=== PATIENT | male | born 1980 | race Caucasian/White ===

== ENCOUNTER 2017-12-10 13:54 | Inpatient (IN) | payer SELFPAY ==
[2017-12-10] MEDS ORDERED: LORazepam TAB(*) 1 MG PO ONE (14:36)
[2017-12-10 14:49] LABS: ABS Basophils 0.1 10^3/ul (0-0.2); ABS Eosinophils 0 10^3/ul (0-0.6); ABS Lymphocytes 1.3 10^3/ul (1.0-4.8); ABS Monocytes 0.5 10^3/ul (0-0.8); ABS Neutrophils 5.1 10^3/ul (1.5-7.7); ABS Nucleated RBC 0 10^3/ul; Eosinophil % 0.7 % (0-6); Hematocrit 46 % (42-52); Hemoglobin 16.2 g/dl (14.0-18.0); Mean Corpuscular HGB Conc 35 g/dl (31-36); Mean Corpuscular Hemoglobin 31 pg (27-31); Mean Corpuscular Volume 89 fL (80-94); Mean Platelet Volume 6.3 um3 (7.4-10.4); Nucleated Red Blood Cells % 0; Platelet Count 185 10^3/ul (150-450); Red Blood Count 5.17 10^6/ul (4.00-5.40); Red Cell Distribution Width 13 % (10.5-15)
[2017-12-10 14:55] LABS: Urine Appearance Clear; Urine Blood Negative (Negative); Urine Color Yellow; Urine Ketones Negative (Negative); Urine Protein Negative (Negative); Urine Specific Gravity 1.011 (1.010-1.030); Urine Urobilinogen Negative (Negative)
[2017-12-10 15:01] LABS: EGFR Non-African American 106.6 (>60)
--- NOTE | 2017-12-10 15:17 | ED ---
Psychiatric Complaint - HPI Summary HPI Summary: This patient is a 37 year old M presenting to [facility] with a chief complaint of chronic depression and anxiety. Pts last drink was Tuesday12/06/17, [place]. Endorses nausea, dry-heaving at hospital due to anxiety. Beer is his drink of choice. Pt [place]. Pt is in the area for rehab. Pt from [facility]. Im sick I need help. Pt was staying at the [facility] back home. Pt endorses trying to stay sober. Pt endorses anxiety causes panic, tries to elope. PMHx anxiety, depression, panic disorder, Xanax Rx, came off Tuesday, took somewhat regularly. PMHx stent in femoral artery in abd due to surgery. Smokes cigarettes. - History Of Current Complaint Chief Complaint: EDMentalHealth Time Seen by Provider: 12/10/17 14:08 Hx Obtained From: Patient Onset/Duration: Still Present Timing: Constant Severity Initially: Moderate Severity Currently: Moderate Character: Depressed, Anxious Aggravating Factor(s): Alcohol Use Alleviating Factor(s): Nothing Associated Signs And Symptoms: Positive: Social Withdrawal Related History: Positive For: Prior Psychiatric Issues, Admissions Related To Substance Abuse - Allergies/Home Medications Allergies/Adverse Reactions: Allergies Allergy/AdvReac Type Severity Reaction Status Date / Time No Known Allergies Allergy n/a Verified 12/10/17 14:02 PMH/Surg Hx/FS Hx/Imm Hx Cardiovascular History: Reports: Other Cardiovascular Problems/Disorders - varicose veins Sensory History: Denies: Hx Legally Blind, Hx Deafness Opthamlomology History: Denies: Hx Legally Blind EENT History: Denies: Hx Deafness Psychiatric History: Reports: Hx Anxiety, Hx Depression, Hx Panic Disorder, Hx Substance Abuse - alcohol - Surgical History Surgery Procedure, Year, and Place: abdominal femoral stent Infectious Disease History: Yes Infectious Disease History: Denies: Traveled Outside the [place] in Last 30 Days - Family History Known Family History: Negative: Blood Disorder - Social History Occupation: Unemployed Lives: Alone - homeless Alcohol Use: Daily Hx Substance Use: Yes Hx Tobacco Use: Yes Smoking Status (MU): Current Every Day Smoker Type: Cigarettes Review of Systems Negative: Fever Positive: Vomiting - dry-heaving, Nausea Positive: Anxious, Depressed All Other Systems Reviewed And Are Negative: Yes Physical Exam Triage Information Reviewed: Yes Vital Signs On Initial Exam: Initial Vitals Temp Pulse Resp BP Pulse Ox 98.5 F 102 26 125/93 95 12/10/17 13:57 12/10/17 13:57 12/10/17 13:57 12/10/17 13:57 12/10/17 13:57 Vital Signs Reviewed: Yes Diagnostics - Vital Signs Vital Signs Temp Pulse Resp BP Pulse Ox 12/10/17 13:57 98.5 F 102 26 125/93 95 - Laboratory Lab Results: Lab Results 12/10/17 12/10/17 12/10/17 Range/Units 14:23 14:23 14:26 WBC 7.0 (3.5-10.8) 10^3/ul RBC 5.17 (4.00-5.40) 10^6/ul Hgb 16.2 (14.0-18.0) g/dl Hct 46 (42-52) % MCV 89 (80-94) fL MCH 31 (27-31) pg MCHC 35 (31-36) g/dl RDW 13 (10.5-15) % Plt Count 185 (150-450) 10^3/ul MPV 6.3 L (7.4-10.4) um3 Neut % (Auto) 73.5 (38-83) % Lymph % (Auto) 18.0 L (25-47) % [place] % (Auto) 6.9 (0-7) % Eos % (Auto) 0.7 (0-6) % Baso % (Auto) 0.9 (0-2) % Absolute Neuts (auto) 5.1 (1.5-7.7) 10^3/ul Absolute Lymphs (auto) 1.3 (1.0-4.8) 10^3/ul Absolute Monos (auto) 0.5 (0-0.8) 10^3/ul Absolute Eos (auto) 0 (0-0.6) 10^3/ul Absolute Basos (auto) 0.1 (0-0.2) 10^3/ul Absolute Nucleated RBC 0 10^3/ul Nucleated RBC % 0 Sodium 139 (135-145) mmol/L Potassium 3.7 (3.5-5.0) mmol/L Chloride 105 (101-111) mmol/L Carbon Dioxide 26 (22-32) mmol/L Anion Gap 8 (2-11) mmol/L BUN 11 (6-24) mg/dL Creatinine 0.81 (0.67-1.17) mg/dL Est GFR ( Amer) 129.0 (>60) Est GFR (Non-Af Amer) 106.6 (>60) BUN/Creatinine Ratio 13.6 (8-20) Glucose 139 H (70-100) mg/dL Calcium 9.4 (8.6-10.3) mg/dL Total Bilirubin 0.40 (0.2-1.0) mg/dL AST 12 L (13-39) U/L ALT 15 (7-52) U/L Alkaline Phosphatase 27 L (34-104) U/L Total Protein 7.1 (6.4-8.9) g/dL Albumin 4.4 (3.2-5.2) g/dL Globulin 2.7 (2-4) g/dL Albumin/Globulin Ratio 1.6 (1-3) TSH Pending Urine Color Yellow Urine Appearance Clear Urine pH 6.0 (5-9) Ur Specific [place] 1.011 (1.010-1.030) Urine Protein Negative (Negative) Urine Ketones Negative (Negative) Urine Blood Negative (Negative) Urine Nitrate Negative (Negative) Urine Bilirubin Negative (Negative) Urine Urobilinogen Negative (Negative) Ur Leukocyte Esterase Negative (Negative) Urine Glucose Negative (Negative) Salicylates Pending Acetaminophen Pending Serum Alcohol Pending Result Diagrams: 12/10/17 14:23 12/10/17 14:23 Lab Statement: Any lab studies that have been ordered have been reviewed, and results considered in the medical decision making process. - EKG 1443 Cardiac Rate: NL - 92 EKG Rhythm: Sinus Rhythm ST Segment: Normal EKG Interpretation: nl axis Course/Dx - Course Course Of Treatment: Patient with chronic alcoholism, depression and anxiety with exacerbation since being off his benzodiazepines since Tuesday. He is showing no evidence for withdrawal here to include no significant tremor, agitation or hypertension. There is no alcohol in his system. A medical evaluation was performed the patient is cleared for psychiatric evaluation. Crisis evaluators would like to hold him over and further evaluate. He was signed out to oncoming ER physician. - Differential Dx/Clinical Impression Provider Diagnosis: Alcoholism, Anxiety disorder Discharge - Sign-Out/Discharge Documenting (check all that apply): Sign-Out Patient Signing out patient TO: Richard Álvarez - psych hold - Discharge Plan Condition: Stable Referrals: No Primary Care Phys,NOPCP [Primary Care Provider] - - Billing Disposition and Condition Condition: STABLE
[2017-12-10] MEDS ORDERED: risperiDONE TAB* 2 MG PO ONE (22:43)
[2017-12-10] MEDS ORDERED: Mirtazapine TAB* 15 MG PO ONE (22:43)
[2017-12-11] MEDS: Venlafaxine EXT RELEASE CAP* 75 MG PO SCH (08:59)
[2017-12-11] MEDS ORDERED: ALPRAZolam TAB* 0.5 MG PO SCH (09:00)
--- NOTE | 2017-12-11 09:06 | PN ---
ED Flex Patient Progress Note Date of Service: 12/10/17 Subjective: This is a 37 year-old M who is pending admission to [facility] Mental [facility] Unit / transfer to another psychiatric facility / discharge to home / or being observed secondary to anxiety and alcoholism. Pt. examined in room F4 around 0820. He is sleeping. Staff reports no concerns over night. Objective: Vitals: Most recent vital signs documented below. General NAD Laboratory: Current laboratory results documented below. Assessment: Pending placement. Plan: Pending psychiatric or medical consultation to observe / transfer / admit / discharge will follow up daily . Vital Signs Temp Pulse Resp BP Pulse Ox 98.9 F 81 20 133/83 99 12/10/17 16:00 12/10/17 16:00 12/10/17 16:00 12/10/17 16:00 12/10/17 16:00 Lab Results - Entire Visit 12/10/17 12/10/17 12/10/17 14:26 14:26 14:23 WBC RBC Hgb Hct MCV MCH MCHC RDW Plt Count MPV Neut % (Auto) Lymph % (Auto) [place] % (Auto) Eos % (Auto) Baso % (Auto) Absolute Neuts (auto) Absolute Lymphs (auto) Absolute Monos (auto) Absolute Eos (auto) Absolute Basos (auto) Absolute Nucleated RBC Nucleated RBC % Sodium 139 Potassium 3.7 Chloride 105 Carbon Dioxide 26 Anion Gap 8 BUN 11 Creatinine 0.81 Est GFR ( Amer) 129.0 Est GFR (Non-Af Amer) 106.6 BUN/Creatinine Ratio 13.6 Glucose 139 H Calcium 9.4 Total Bilirubin 0.40 AST 12 L ALT 15 Alkaline Phosphatase 27 L Total Protein 7.1 Albumin 4.4 Globulin 2.7 Albumin/Globulin Ratio 1.6 TSH 0.90 Urine Color Yellow Urine Appearance Clear Urine pH 6.0 Ur Specific [place] 1.011 Urine Protein Negative Urine Ketones Negative Urine Blood Negative Urine Nitrate Negative Urine Bilirubin Negative Urine Urobilinogen Negative Ur Leukocyte Esterase Negative Urine Glucose Negative Salicylates < 2.50 Urine Opiates Screen None detected Acetaminophen < 15 Ur Barbiturates Screen None detected Ur Phencyclidine Scrn None detected Ur Amphetamines Screen None detected U Benzodiazepines Scrn None detected Urine Cocaine Screen None detected U Cannabinoids Screen None detected Serum Alcohol < 10 12/10/17 14:23 WBC 7.0 RBC 5.17 Hgb 16.2 Hct 46 MCV 89 MCH 31 MCHC 35 RDW 13 Plt Count 185 MPV 6.3 L Neut % (Auto) 73.5 Lymph % (Auto) 18.0 L [place] % (Auto) 6.9 Eos % (Auto) 0.7 Baso % (Auto) 0.9 Absolute Neuts (auto) 5.1 Absolute Lymphs (auto) 1.3 Absolute Monos (auto) 0.5 Absolute Eos (auto) 0 Absolute Basos (auto) 0.1 Absolute Nucleated RBC 0 Nucleated RBC % 0 Sodium Potassium Chloride Carbon Dioxide Anion Gap BUN Creatinine Est GFR ( Amer) Est GFR (Non-Af Amer) BUN/Creatinine Ratio Glucose Calcium Total Bilirubin AST ALT Alkaline Phosphatase Total Protein Albumin Globulin Albumin/Globulin Ratio TSH Urine Color Urine Appearance Urine pH Ur Specific [place] Urine Protein Urine Ketones Urine Blood Urine Nitrate Urine Bilirubin Urine Urobilinogen Ur Leukocyte Esterase Urine Glucose Salicylates Urine Opiates Screen Acetaminophen Ur Barbiturates Screen Ur Phencyclidine Scrn Ur Amphetamines Screen U Benzodiazepines Scrn Urine Cocaine Screen U Cannabinoids Screen Serum Alcohol
[2017-12-11] MEDS ORDERED: hydrOXYzine HCL TAB* 50 MG PO ONE (13:13)
[2017-12-11] MEDS ORDERED: hydrOXYzine HCL TAB* 50 MG ONE (13:16)
--- NOTE | 2017-12-11 14:07 | PN ---
ED Flex Patient Progress Note Date of Service: 12/11/17 Subjective: This is a 37 year-old M who is pending admission to [facility] Unit / transfer to another psychiatric facility secondary to worsening depressive symptoms, including suicidal ideation and inability to contract for safety if not admitted. He endorses having history of bipolar disorder, polysubstance abuse, and two serious suicide attempts (09/14 and 2013). He was driven by relatives to [place] on Tuesday12/07/17. He signed himself-out the next day and hitchhiked to [place]. He maintains that he will kill himself if discharged Today, he offers complaints of depressed mood, feeling hopeless, not having any reason to stay alive. He declines to discuss any specific plan. He also complains of extreme anxiety. Objective: Found lying in bed, alert, oriented x 3, poor eye contact, terse sleep, irritable affect, depressed mood. He maintains SI and does not contract for safety. He denies HI or A/VH. Assessment: Patient reports being depressed and suicidal. Relative, when contacted, expressed concerns about discharge him. Plan: Pending psychiatric transfer / admit /will follow up daily until then. Vital Signs Temp Pulse Resp BP Pulse Ox 98.6 F 100 17 118/79 100 12/11/17 09:09 12/11/17 09:09 12/11/17 09:09 12/11/17 09:09 12/11/17 09:09 Lab Results - Entire Visit 12/10/17 12/10/17 12/10/17 14:26 14:26 14:23 WBC RBC Hgb Hct MCV MCH MCHC RDW Plt Count MPV Neut % (Auto) Lymph % (Auto) [place] % (Auto) Eos % (Auto) Baso % (Auto) Absolute Neuts (auto) Absolute Lymphs (auto) Absolute Monos (auto) Absolute Eos (auto) Absolute Basos (auto) Absolute Nucleated RBC Nucleated RBC % Sodium 139 Potassium 3.7 Chloride 105 Carbon Dioxide 26 Anion Gap 8 BUN 11 Creatinine 0.81 Est GFR ( Amer) 129.0 Est GFR (Non-Af Amer) 106.6 BUN/Creatinine Ratio 13.6 Glucose 139 H Calcium 9.4 Total Bilirubin 0.40 AST 12 L ALT 15 Alkaline Phosphatase 27 L Total Protein 7.1 Albumin 4.4 Globulin 2.7 Albumin/Globulin Ratio 1.6 TSH 0.90 Urine Color Yellow Urine Appearance Clear Urine pH 6.0 Ur Specific [place] 1.011 Urine Protein Negative Urine Ketones Negative Urine Blood Negative Urine Nitrate Negative Urine Bilirubin Negative Urine Urobilinogen Negative Ur Leukocyte Esterase Negative Urine Glucose Negative Salicylates < 2.50 Urine Opiates Screen None detected Acetaminophen < 15 Ur Barbiturates Screen None detected Ur Phencyclidine Scrn None detected Ur Amphetamines Screen None detected U Benzodiazepines Scrn None detected Urine Cocaine Screen None detected U Cannabinoids Screen None detected Serum Alcohol < 10 12/10/17 14:23 WBC 7.0 RBC 5.17 Hgb 16.2 Hct 46 MCV 89 MCH 31 MCHC 35 RDW 13 Plt Count 185 MPV 6.3 L Neut % (Auto) 73.5 Lymph % (Auto) 18.0 L [place] % (Auto) 6.9 Eos % (Auto) 0.7 Baso % (Auto) 0.9 Absolute Neuts (auto) 5.1 Absolute Lymphs (auto) 1.3 Absolute Monos (auto) 0.5 Absolute Eos (auto) 0 Absolute Basos (auto) 0.1 Absolute Nucleated RBC 0 Nucleated RBC % 0 Sodium Potassium Chloride Carbon Dioxide Anion Gap BUN Creatinine Est GFR ( Amer) Est GFR (Non-Af Amer) BUN/Creatinine Ratio Glucose Calcium Total Bilirubin AST ALT Alkaline Phosphatase Total Protein Albumin Globulin Albumin/Globulin Ratio TSH Urine Color Urine Appearance Urine pH Ur Specific [place] Urine Protein Urine Ketones Urine Blood Urine Nitrate Urine Bilirubin Urine Urobilinogen Ur Leukocyte Esterase Urine Glucose Salicylates Urine Opiates Screen Acetaminophen Ur Barbiturates Screen Ur Phencyclidine Scrn Ur Amphetamines Screen U Benzodiazepines Scrn Urine Cocaine Screen U Cannabinoids Screen Serum Alcohol
[2017-12-11] MEDS: Nicotine GUM* 2 MG PO PRN (18:06)
--- NOTE | 2017-12-11 18:26 | ED ---
Progress - Progress Note Progress Note: Pt received from Dr. Álvarez awaiting mental health evaluation and disposition. After mental health evaluation by Dr. Mccain, the pt will be admitted. Pt will be signed out to Dr. Álvarez and the he will be admitted. There are currently no beds available and it is likely he will be admitted tomorrow. - Consult/PCP Time Called: 16:00 Course/Dx - Diagnoses Provider Diagnoses: Alcoholism, Anxiety disorder Discharge - Sign-Out/Discharge Documenting (check all that apply): Sign-Out Patient, Receiving Sign-Out Signing out patient TO: Richard Álvarez Receiving patient FROM: Richard Álvarez - Discharge Plan Condition: Stable Referrals: No Primary Care Phys,NOPCP [Primary Care Provider] - - Billing Disposition and Condition Condition: STABLE
[2017-12-11] MEDS: risperiDONE TAB* 1 MG PO SCH (21:24)
[2017-12-11] MEDS: Mirtazapine TAB* 15 MG PO PRN (21:25)
--- NOTE | 2017-12-12 07:08 | ED ---
Progress - Progress Note Progress Note: This is scribe Ruth Jackson documenting for attending Eduardo Cantu M.D. Pt will be admitted [facility] for suicidal ideation, depression, and alcoholism. Course/Dx - Course Course Of Treatment: Pt will be admitted to [facility] for suicidal ideation, depression, alcoholism. He is admitted voluntarily. - Diagnoses Provider Diagnoses: Suicidal ideation, Depression, Alcoholism Discharge - Sign-Out/Discharge Documenting (check all that apply): Patient Departure - Admit, Receiving Sign- Out Receiving patient FROM: Richard Álvarez - Discharge Plan Condition: Stable Disposition: ADMITTED TO [facility] Referrals: No Primary Care Phys,NOPCP [Primary Care Provider] -
--- NOTE | 2017-12-12 07:48 | PN ---
ED Flex Patient Progress Note Date of Service: 12/12/17 Subjective: This is a 37 year-old M who is pending admission to [facility] Mental [facility] Unit / transfer to another psychiatric facility secondary to depression and ETOH. per note had breakfast. Pt is currently a sleep. Objective: Vitals: Most recent vital signs documented below. General NAD, Alert and oriented x3. currently a sleep Lungs: unlabored breathing Laboratory: Current laboratory results documented below. Assessment: Depression ETOH Plan: Pending psychiatric to transfer or admit will follow up daily until bed available condition:Stable disposition: admit/transfer Vital Signs Temp Pulse Resp BP Pulse Ox 98.9 F 64 16 99/53 95 12/11/17 15:22 12/11/17 15:22 12/11/17 15:22 12/11/17 15:22 12/11/17 15:22 Lab Results - Entire Visit 12/10/17 12/10/17 12/10/17 14:26 14:26 14:23 WBC RBC Hgb Hct MCV MCH MCHC RDW Plt Count MPV Neut % (Auto) Lymph % (Auto) [place] % (Auto) Eos % (Auto) Baso % (Auto) Absolute Neuts (auto) Absolute Lymphs (auto) Absolute Monos (auto) Absolute Eos (auto) Absolute Basos (auto) Absolute Nucleated RBC Nucleated RBC % Sodium 139 Potassium 3.7 Chloride 105 Carbon Dioxide 26 Anion Gap 8 BUN 11 Creatinine 0.81 Est GFR ( Amer) 129.0 Est GFR (Non-Af Amer) 106.6 BUN/Creatinine Ratio 13.6 Glucose 139 H Calcium 9.4 Total Bilirubin 0.40 AST 12 L ALT 15 Alkaline Phosphatase 27 L Total Protein 7.1 Albumin 4.4 Globulin 2.7 Albumin/Globulin Ratio 1.6 TSH 0.90 Urine Color Yellow Urine Appearance Clear Urine pH 6.0 Ur Specific [place] 1.011 Urine Protein Negative Urine Ketones Negative Urine Blood Negative Urine Nitrate Negative Urine Bilirubin Negative Urine Urobilinogen Negative Ur Leukocyte Esterase Negative Urine Glucose Negative Salicylates < 2.50 Urine Opiates Screen None detected Acetaminophen < 15 Ur Barbiturates Screen None detected Ur Phencyclidine Scrn None detected Ur Amphetamines Screen None detected U Benzodiazepines Scrn None detected Urine Cocaine Screen None detected U Cannabinoids Screen None detected Serum Alcohol < 10 12/10/17 14:23 WBC 7.0 RBC 5.17 Hgb 16.2 Hct 46 MCV 89 MCH 31 MCHC 35 RDW 13 Plt Count 185 MPV 6.3 L Neut % (Auto) 73.5 Lymph % (Auto) 18.0 L [place] % (Auto) 6.9 Eos % (Auto) 0.7 Baso % (Auto) 0.9 Absolute Neuts (auto) 5.1 Absolute Lymphs (auto) 1.3 Absolute Monos (auto) 0.5 Absolute Eos (auto) 0 Absolute Basos (auto) 0.1 Absolute Nucleated RBC 0 Nucleated RBC % 0 Sodium Potassium Chloride Carbon Dioxide Anion Gap BUN Creatinine Est GFR ( Amer) Est GFR (Non-Af Amer) BUN/Creatinine Ratio Glucose Calcium Total Bilirubin AST ALT Alkaline Phosphatase Total Protein Albumin Globulin Albumin/Globulin Ratio TSH Urine Color Urine Appearance Urine pH Ur Specific [place] Urine Protein Urine Ketones Urine Blood Urine Nitrate Urine Bilirubin Urine Urobilinogen Ur Leukocyte Esterase Urine Glucose Salicylates Urine Opiates Screen Acetaminophen Ur Barbiturates Screen Ur Phencyclidine Scrn Ur Amphetamines Screen U Benzodiazepines Scrn Urine Cocaine Screen U Cannabinoids Screen Serum Alcohol
[2017-12-12] MEDS: risperiDONE TAB* 1 MG PO SCH ×2 (09:03→20:53)
[2017-12-12] MEDS: Venlafaxine EXT RELEASE CAP* 75 MG PO SCH (09:04)
--- NOTE | 2017-12-12 11:53 | PN ---
ED Flex Patient Progress Note Date of Service: 12/12/17 Subjective: This is a 37 year-old M who is pending admission to [facility] Unit / transfer to another psychiatric facility secondary to feeling depressed and suicidal. He reports feeling slightly better today but continues to not contact for safety if discharged. Objective: Alert, oriented x 3, lying in bed in the dark, (+) psychomotor retardation, endorses SI, denies specific plan but does not contract for safety. He denies HI or A/VH. Assessment: Remains depressed, suicidal and in need of inpatient psychiatric treatment for safety, evaluation and treatment. Plan: Pending psychiatric admit in our [facility] today. Vital Signs Temp Pulse Resp BP Pulse Ox 98.9 F 64 16 99/53 95 12/11/17 15:22 12/11/17 15:22 12/11/17 15:22 12/11/17 15:22 12/11/17 15:22 Lab Results - Entire Visit 12/10/17 12/10/17 12/10/17 14:26 14:26 14:23 WBC RBC Hgb Hct MCV MCH MCHC RDW Plt Count MPV Neut % (Auto) Lymph % (Auto) [place] % (Auto) Eos % (Auto) Baso % (Auto) Absolute Neuts (auto) Absolute Lymphs (auto) Absolute Monos (auto) Absolute Eos (auto) Absolute Basos (auto) Absolute Nucleated RBC Nucleated RBC % Sodium 139 Potassium 3.7 Chloride 105 Carbon Dioxide 26 Anion Gap 8 BUN 11 Creatinine 0.81 Est GFR ( Amer) 129.0 Est GFR (Non-Af Amer) 106.6 BUN/Creatinine Ratio 13.6 Glucose 139 H Calcium 9.4 Total Bilirubin 0.40 AST 12 L ALT 15 Alkaline Phosphatase 27 L Total Protein 7.1 Albumin 4.4 Globulin 2.7 Albumin/Globulin Ratio 1.6 TSH 0.90 Urine Color Yellow Urine Appearance Clear Urine pH 6.0 Ur Specific [place] 1.011 Urine Protein Negative Urine Ketones Negative Urine Blood Negative Urine Nitrate Negative Urine Bilirubin Negative Urine Urobilinogen Negative Ur Leukocyte Esterase Negative Urine Glucose Negative Salicylates < 2.50 Urine Opiates Screen None detected Acetaminophen < 15 Ur Barbiturates Screen None detected Ur Phencyclidine Scrn None detected Ur Amphetamines Screen None detected U Benzodiazepines Scrn None detected Urine Cocaine Screen None detected U Cannabinoids Screen None detected Serum Alcohol < 10 12/10/17 14:23 WBC 7.0 RBC 5.17 Hgb 16.2 Hct 46 MCV 89 MCH 31 MCHC 35 RDW 13 Plt Count 185 MPV 6.3 L Neut % (Auto) 73.5 Lymph % (Auto) 18.0 L [place] % (Auto) 6.9 Eos % (Auto) 0.7 Baso % (Auto) 0.9 Absolute Neuts (auto) 5.1 Absolute Lymphs (auto) 1.3 Absolute Monos (auto) 0.5 Absolute Eos (auto) 0 Absolute Basos (auto) 0.1 Absolute Nucleated RBC 0 Nucleated RBC % 0 Sodium Potassium Chloride Carbon Dioxide Anion Gap BUN Creatinine Est GFR ( Amer) Est GFR (Non-Af Amer) BUN/Creatinine Ratio Glucose Calcium Total Bilirubin AST ALT Alkaline Phosphatase Total Protein Albumin Globulin Albumin/Globulin Ratio TSH Urine Color Urine Appearance Urine pH Ur Specific [place] Urine Protein Urine Ketones Urine Blood Urine Nitrate Urine Bilirubin Urine Urobilinogen Ur Leukocyte Esterase Urine Glucose Salicylates Urine Opiates Screen Acetaminophen Ur Barbiturates Screen Ur Phencyclidine Scrn Ur Amphetamines Screen U Benzodiazepines Scrn Urine Cocaine Screen U Cannabinoids Screen Serum Alcohol
[2017-12-12] MEDS ORDERED: Al Hydrox/Mg Hydrox/Simet LIQ* 30 ML UDC PO PRN (14:14)
[2017-12-12] MEDS ORDERED: Acetaminophen TAB* 325 MG PO PRN (14:14)
[2017-12-12] MEDS ORDERED: Mouth Piece, Nicotine* 1 EACH CARTRIDGE INH ONE (15:00)
[2017-12-12] MEDS: Nicotine Inhaler* 10 MG AMP INH PRN ×2 (17:51→20:53)
[2017-12-12] MEDS: Mirtazapine TAB* 15 MG PO PRN (20:53)
[2017-12-12] MEDS: Nicotine GUM* 2 MG PO PRN (20:53)
[2017-12-12] MEDS: Nicotine Patch Removal NOTE PATCH OFF SCH (20:53)
[2017-12-13] MEDS: Nicotine Inhaler* 10 MG AMP INH PRN ×3 (10:42→20:44)
[2017-12-13] MEDS: Vitamin THERAPEUTIC TAB PO SCH (10:43)
[2017-12-13] MEDS: risperiDONE TAB* 1 MG PO SCH ×2 (10:43→20:14)
[2017-12-13] MEDS: Venlafaxine EXT RELEASE CAP* 75 MG PO SCH (10:43)
[2017-12-13] MEDS: Nicotine GUM* 2 MG PO PRN (10:43)
[2017-12-13] MEDS: Nicotine PATCH 21 MG/24 HR* PATCH TRANSDERM SCH (10:44)
--- NOTE | 2017-12-13 14:43 | PN ---
[facility]: Group Therapy Note - Service Type Service Type: 15512 Group Psychotherapy - Cognitive Behavioral Group Therapy ( CBT):Patient was attentive and participatory in CBT programming this morning, and remained in good behavioral control. Patient expressed positive insights regarding relevant treatment interventions and goals.
--- NOTE | 2017-12-13 16:57 | HP ---
H&P (Free Text) History and Physical: JUSTIFICATION FOR ADMISSION: Patient presented to emergency room with suicidal ideation and plan, worsening depression and ambivalent about alcohol treatment. He requires inpatient psychiatric admission in order to provide treatment and stabilization as he is a danger to himself. CHIEF COMPLAINT: "I was not feeling right that is why I came to the hospital HISTORY OF THE PRESENT ILLNESS: Patient is a 37 y/o male, single, was living in a homeless chcf, currently unemployed, with history of Bipolar Depression and Suicidal attempts. Patient was admitted to inpatient unit for worsening of depression and recurrence of suicidal thoughts following psychosocial stressors and as per patient he was clean for 2 and half years until it felt apart at the beginning of this year following break up with his girlfriend. As per patient, he has been compliant with his medications from outpatient provider in [place]. But patient and family were concerned about his alcoholism and patient went to start alcohol Rehab at [place] but was not ready for it and left that place. Patient has been losing interest in his life. Patient has been feeling passively suicidal, impulsive with his behavior but no suicidal intent or attempt. Patient reportedly has anxiety and depression somewhat responding to Effexor. Patient reports no manic symptoms at this time but has mentioned history of them regardless of substance /alcohol use. Patient reports no psychotic symptoms of hallucinations or delusions and requested to revisit his need to be on any antipsychotics. Patient denied any suicidal or homicidal ideation on the unit. Patient continued to exhibit behavior that was in control and will approach staff if suicidal thoughts recur. PAST PSYCHIATRIC HISTORY: Patient has history of multiple inpatient psychiatric hospitalization. Patient has history of outpatient psychiatric treatment for Bipolar Depression and alcohol use disorder. Patients have been tried on multiple medications including lithium, Zyprexa, Risperidone but was unable to comment on the response. Patient has history of multiple inpatient rehab and outpatient drug treatment and was reported sober for 2 and half years until relapsed in the beginning of the year following breakup. Patient has history of suicidal thoughts and attempts twice reported following inability to deal with psychosocial stressor and overdosed on medications which was impulsive and of moderate lethality and rescue probability. Patient has no history of homicidal threats, intent or attempt. Patient has history of aggressive and agitated behavior when decompensates but no reported history of violence. No access to firearm reported. SUBSTANCE ABUSE HISTORY: Patient uses alcohol and recently signed out from a rehab. Urine toxicology was negative. Last use of alcohol was 12/06/17. Patient has been in inpatient and outpatient treatment for drugs. PAST MEDICAL HISTORY: No active medical problems ALLERGIES: [facility] FAMILY PSYCHIATRIC HISTORY: Patient has family history of mental illness including depression and anxiety. Patient has history of substance abuse in family. No reported suicide in the family. FAMILY/PSYCHOSOCIAL HISTORY: Patient currently is homeless was living at a alcohol recovery housing but had to leave that at the beginning of this year because of his relapse. Patient is not . Patient has 4 siblings, was raised by mother, parents got when he was a child. Patient is currently close to his elder brother and is planning to move back to him once he is better. Patient support system includes his family and friends. REVIEW OF SYSTEMS: Patients review of symptoms was negative for any physical complaint. But patient has been agitated and unstable in his mood, refusing his vitals to be taken. Patients ED physical exam was reviewed which is grossly normal with no active medical problem. MENTAL STATUS EXAMINATION: Appearance: appear stated, age, fair hygiene, fairly kempt Behavior: cooperative Gait: normal Abnormal motor activity: none Speech: low tone and volume, normal rate and rhythm Mood: depressed Affect: dysphoric Thought process: goal directed Thought Content: Suicidal/Homicidal ideation: passive Delusions: none Obsessions: none Phobia: none Perceptual disturbance: none Attention: fair Orientation: intact Concentration: limited Memory: fair Insight: fair Judgment: fair Impulse control: fair IMPRESSION: Patient with history of Bipolar Depression, Substance Abuse ( methamphetamine), Alcohol with suicidal attempts. Patient currently admitted due to worsening of depression and suicidal ideation. Patient has also struggled with ongoing psychosocial stressor and ambivalence about alcohol treatment . Patient is a danger to self and others if discharged hence will be stabilized on inpatient unit with medication adjustments and therapy. DIAGNOSES: Bipolar I Disorder, MRE Depression, Alcohol Use Disorder, Methamphetamine Use Disorder in remission PLAN: Admit to [facility] on Q 15 min observation. Patient is full code. Patient is on involuntary admission status Integrate patient into the milieu individual and group psychotherapy MMPI and psychological consult with Dr. Luu. Social work consults for therapy and discharge planning Will hold family meeting with parents to increase Data base. Patient gave informed consent to start the following medications: Patient Risperidone was reduced to 1 mg BID with intent to monitor any relapse in manic or psychotic symptoms. Patient reports some improvement with Effexor and remeron for his anxiety and depression and wants to continue with that. Will start Hydroxyzine as needed for breakthrough anxiety. Will continue to monitor and f/u for improvement and side effects. Melanie Lowe MD Attending Psychiatrist
[2017-12-13] MEDS: Mirtazapine TAB* 15 MG PO PRN (20:14)
[2017-12-13] MEDS: Nicotine Patch Removal NOTE PATCH OFF SCH (20:17)
[2017-12-14] MEDS: Nicotine PATCH 21 MG/24 HR* PATCH TRANSDERM SCH (09:34)
[2017-12-14] MEDS: Venlafaxine EXT RELEASE CAP* 75 MG PO SCH (09:37)
[2017-12-14] MEDS: risperiDONE TAB* 1 MG PO SCH ×2 (09:38→20:05)
[2017-12-14] MEDS: Vitamin THERAPEUTIC TAB PO SCH (09:38)
[2017-12-14] MEDS: Nicotine Inhaler* 10 MG AMP INH PRN ×4 (10:22→20:05)
--- NOTE | 2017-12-14 12:48 | PN ---
Subjective - Subjective Date of Service: 12/14/17 Service Type: 33203 Hosp care 15 min low complexity Subjective: Patient was seen by self, discussed with treatment team, chart was reviewed. Patient has been compliant with his medications, no reported side effects. Patient reports improvement in his symptoms of depression and anxiety. Patient sleeping has been better. Patient eating has been good. Patient has been cooperative with staff. Patient behavior has been in control with no behavior displayed that is dangerous to self and others. Patient mood was less anxious and less dysphoric. Patient was offered inpatient rehab upon further stability but wants to follow up outpatient treatment for mental health and alcohol when discharged. Patient reports being committed about not relapsing on alcohol and stating that he has done that in the past. Patient has been reporting no suicidal or homicidal ideation. No psychotic symptoms of delusions or hallucinations. Patient reports that he is participating in therapy and wants to learn more about relationships. Patient reports that he is making short term goals for himself upon discharge and finds his family to be supportive. Objective - Appearance Appearance: Healthy Appearing Dysmorphic Features: No Hygiene: Normal Grooming: Fairly Well Kept - Behavior Psychomotor Activities: Normal Exhibits Abnormal Movement: No - Attitude and Relatedness Attitude and Relatedness: Cooperative Eye Contact: Fair - Speech Quality: Unpressured Latencies: Normal Quantity: Appropriate - Mood Patient's Decription of Mood: "Okay" - Affect Observed Affect: Constricted Affect Consistent with: Dysphoria - Thought Process Patient's Thought Process: Coherent Thought Content: No Passive Wish, No Suicidal Planning, No Homicidal Ideation, No Paranoid Ideation - Sensorium Experiencing Hallucinations: No, Sensorium is Clear Type of Hallucinations: Visual: No, Auditory: No, Command: No - Level of Consciousness Level of Consciousness: Alert Orientation: Yes Intact, Yes Orientated to Time, Yes Orientated to Place, Yes Orientated to Person - Impulse Control Impulse Control: Intact - Insight and Judgement Insight and Judgement: Fair - Group Participation Particating in Group Activities: Yes - Medication Management Medication Management Adherence: Yes Assessment - Assessment Merits Inpatient Hospitalization: For Stabilization Inpatient DSM-V Dx: F31.4 Clinical Impression: Patient with history of bipolar disorder, currently admitted for worsening depression and suicidal ideation with alcohol use disorder. Patient has also been struggling with relationship and stressed out about recent breakup. Patient was ambivalent about his alcohol treatment and recently left inpatient alcohol rehab. Patient is a danger to self, discharged hence medications are being adjusted and symptoms will be stabilized on inpatient. Plan - Plan Treatment Plan: Name: KYLER MAZARIEGOS Birthdate: 1980 [id number] - Patient continues to be hospitalized due to recent suicidal thoughts, mood instability, anxiety and impulsivity. - Patient's medications were continued after informed consent from patient. - Patient will be monitored for improvement and side effects. Risk and benefits were discussed. - Patient was encouraged to continue his participation in the milieu, group and individual therapy. Medications: Current Medications Acetaminophen (Tylenol Tab*) 650 mg PO Q4H PRN PRN Reason: for pain; or Temp >101 F Al Hydrox/Mg Hydrox/Simethicone (Maalox Plus*) 30 ml PO Q4H PRN PRN Reason: INDIGESTION Mirtazapine (Remeron Tab*) 15 mg PO BEDTIME PRN PRN Reason: SLEEP Last Admin: 12/13/17 20:14 Dose: 15 mg Multivitamins (Theragran Tab*) 1 tab PO DAILY [facility] Last Admin: 12/14/17 09:38 Dose: 1 tab Nicotine (Nicotine Inhaler*) 10 mg INH Q2H PRN PRN Reason: CRAVING Last Admin: 12/14/17 10:22 Dose: 10 mg Nicotine (Nicotine Patch 21 Mg/24 Hr*) 1 patch TRANSDERM DAILY@0800 [facility] Last Admin: 12/14/17 09:34 Dose: Not Given Nicotine Polacrilex (Nicotine Gum*) 2 mg PO Q2H PRN PRN Reason: CRAVING Last Admin: 12/13/17 10:43 Dose: 2 mg Pharmacy Profile Note (Nicotine Patch Removal Note*) 1 note PATCH OFF 2100 [facility] Last Admin: 12/13/17 20:17 Dose: Not Given Risperidone (Risperdal*) 1 mg PO BID [facility] Last Admin: 12/14/17 09:38 Dose: 1 mg Venlafaxine HCl (Effexor Xr Cap*) 150 mg PO DAILY [facility] Last Admin: 12/14/17 09:37 Dose: 150 mg - Discharge Plan Discharge Plan: Outpatient Follow Up - both mental health and alcohol treatment
[2017-12-14] MEDS: Mirtazapine TAB* 15 MG PO PRN (20:05)
[2017-12-15] MEDS: Nicotine Patch Removal NOTE PATCH OFF SCH ×2 (02:42→19:49)
[2017-12-15] MEDS: risperiDONE TAB* 1 MG PO SCH ×2 (09:54→20:31)
[2017-12-15] MEDS: Nicotine Inhaler* 10 MG AMP INH PRN ×3 (09:54→15:35)
[2017-12-15] MEDS: Venlafaxine EXT RELEASE CAP* 75 MG PO SCH (09:54)
[2017-12-15] MEDS: Nicotine PATCH 21 MG/24 HR* PATCH TRANSDERM SCH (09:55)
[2017-12-15] MEDS: Vitamin THERAPEUTIC TAB PO SCH (09:55)
--- NOTE | 2017-12-15 11:30 | PN ---
MHU: Group Therapy Note - Service Type Service Type: 24233 Group Psychotherapy - Cognitive Behavioral Group Therapy ( CBT):Patient was attentive and participatory in CBT programming this morning, and remained in good behavioral control. Patient expressed positive insights regarding relevant treatment interventions and goals.
--- NOTE | 2017-12-15 13:14 | PN ---
Subjective - Subjective Date of Service: 12/15/17 Service Type: 31720 [facility] care 15 min low complexity Subjective: Patient was seen by self, discussed with treatment team, chart was reviewed. Patient has been compliant with his medications, no reported side effects. Patient reports improvement in his symptoms of depression and anxiety and reports no suicidal ideation. Patient sleeping has been better. Patient eating has been good. Patient has been cooperative with staff. Patient behavior has been in control with no behavior displayed that is dangerous to self and others. Patient mood was less anxious and less dysphoric, wanting naltrexone to reduce craving of alcohol. Patient wants to follow up outpatient treatment for mental health and alcohol when discharged in [place]. Patient reports being committed about not relapsing on alcohol and stating that he has done that in the past. Patient has been reporting no homicidal ideation. No psychotic symptoms of delusions or hallucinations. Patient reports that he is participating in therapy and learning to cope with distress. Patient reports that he is making short term goals for himself upon discharge and finds his family to be supportive. Objective - Appearance Appearance: Healthy Appearing Dysmorphic Features: No Hygiene: Normal Grooming: Fairly Well Kept - Behavior Psychomotor Activities: Normal Exhibits Abnormal Movement: No - Attitude and Relatedness Attitude and Relatedness: Cooperative Eye Contact: Good - Speech Quality: Unpressured Latencies: Normal Quantity: Appropriate - Mood Patient's Decription of Mood: "Okay" - Affect Observed Affect: Constricted Affect Consistent with: Dysphoria - less - Thought Process Patient's Thought Process: Coherent Thought Content: No Passive Wish, No Suicidal Planning, No Homicidal Ideation, No Paranoid Ideation - Sensorium Experiencing Hallucinations: No, Sensorium is Clear Type of Hallucinations: Visual: No, Auditory: No, Command: No - Level of Consciousness Level of Consciousness: Alert Orientation: Yes Intact, Yes Orientated to Time, Yes Orientated to Place, Yes Orientated to Person - Impulse Control Impulse Control: Intact - Insight and Judgement Insight and Judgement: Fair - Group Participation Particating in Group Activities: Yes - Medication Management Medication Management Adherence: Yes Assessment - Assessment Inpatient DSM-V Dx: F31.4 Clinical Impression: Patient with history of bipolar disorder, currently admitted for worsening depression and suicidal ideation with alcohol use disorder. Patient has also been struggling with relationship and stressed out about recent breakup. Patient was ambivalent about his alcohol treatment and recently left inpatient alcohol rehab. Patient is a danger to self, discharged hence medications are being adjusted and symptoms will be stabilized on inpatient. Plan - Plan Treatment Plan: Name: KYLER MAZARIEGOS Birthdate: 1980 [id number] - Patient continues to be hospitalized due to recent suicidal thoughts, mood instability, anxiety and impulsivity. - Patient's medications were continued after informed consent from patient. Patient is tolerating reduction in Risperidone to 1 mg BID with out any relapse in symptoms. Patient was started on Naltrexone after informed consent to help with alcohol craving. - Patient will be monitored for improvement and side effects. Risk and benefits were discussed. - Patient was encouraged to continue his participation in the milieu, group and individual therapy. Medications: Current Medications Acetaminophen (Tylenol Tab*) 650 mg PO Q4H PRN PRN Reason: for pain; or Temp >101 F Al Hydrox/Mg Hydrox/Simethicone (Maalox Plus*) 30 ml PO Q4H PRN PRN Reason: INDIGESTION Mirtazapine (Remeron Tab*) 15 mg PO BEDTIME PRN PRN Reason: SLEEP Last Admin: 12/14/17 20:05 Dose: 15 mg Multivitamins (Theragran Tab*) 1 tab PO DAILY [facility] Last Admin: 12/15/17 09:55 Dose: 1 tab Naltrexone HCl (Naltrexone Tab*) 50 mg PO DAILY [facility]; Protocol Nicotine (Nicotine Inhaler*) 10 mg INH Q2H PRN PRN Reason: CRAVING Last Admin: 12/15/17 12:34 Dose: 10 mg Nicotine (Nicotine Patch 21 Mg/24 Hr*) 1 patch TRANSDERM DAILY@0800 [facility] Last Admin: 12/15/17 09:55 Dose: Not Given Nicotine Polacrilex (Nicotine Gum*) 2 mg PO Q2H PRN PRN Reason: CRAVING Last Admin: 12/13/17 10:43 Dose: 2 mg Pharmacy Profile Note (Nicotine Patch Removal Note*) 1 note PATCH OFF 2100 [facility] Last Admin: 12/15/17 02:42 Dose: Not Given Risperidone (Risperdal*) 1 mg PO BID [facility] Last Admin: 12/15/17 09:54 Dose: 1 mg Venlafaxine HCl (Effexor Xr Cap*) 150 mg PO DAILY [facility] Last Admin: 12/15/17 09:54 Dose: 150 mg
[2017-12-15] MEDS: Naltrexone TAB* 50 MG TAB PO SCH (14:34)
[2017-12-15] MEDS: Nicotine GUM* 2 MG PO PRN ×2 (15:35→19:27)
--- NOTE | 2017-12-15 16:14 | PN ---
MHU: Group Therapy Note - Service Type Service Type: 73059 Group Psychotherapy - Group Participation Patient Participating in Group: Yes Level of Group Participation: Spontaneously Participate Relatedness to Group: Well Related - Appearance Appearance: Well Developed/Nourished Hygiene: Normal Grooming: Well Kept - Behavior Psychomotor Activities: Normal Exhibits Abnormal Movement: No - Attitude and Relatedness Attitude and Relatedness: Irritable Eye Contact: Good - Speech Quality: Unpressured Latencies: Normal Quantity: Appropriate - Mood Patient's Decription of Mood: "Fine" - Affect Observed Affect: Tense Affect Consistent with: Euthymia - Thought Process Patient's Thought Process: Coherent Thought Content: No Passive Wish, No Suicidal Planning, No Homicidal Ideation, No Paranoid Ideation - Sensorium Experiencing Hallucinations: No, Sensorium is Clear Type of Hallucinations: Visual: No, Auditory: No, Command: No - Level of Consciousness Level of Consciousness: Alert Orientation: Yes Intact, Yes Orientated to Time, Yes Orientated to Place, Yes Orientated to Person - Impulse Control Impulse Control: Tenuous - Insight and Judgement Insight and Judgement: Fair - Additional Group Comments Group Comments: David was irritable during group, finding that others who were intrusive were annoying to him. Still, he participated appropriately and was not particularly rude.
[2017-12-15] MEDS: Mirtazapine TAB* 15 MG PO PRN (20:32)
[2017-12-16 08:08] VITALS: BP 117/73
[2017-12-16] MEDS: Vitamin THERAPEUTIC TAB PO SCH (08:20)
[2017-12-16] MEDS: risperiDONE TAB* 1 MG PO SCH (08:20)
[2017-12-16] MEDS: Venlafaxine EXT RELEASE CAP* 75 MG PO SCH (08:20)
[2017-12-16] MEDS: Nicotine Inhaler* 10 MG AMP INH PRN (08:20)
[2017-12-16] MEDS: Naltrexone TAB* 50 MG TAB PO SCH (08:20)
[2017-12-16] MEDS: Nicotine PATCH 21 MG/24 HR* PATCH TRANSDERM SCH (08:47)
--- NOTE | 2017-12-16 12:34 | DS ---
Subjective - Subjective Discharge Date: 12/16/17 Subjective: JUSTIFICATION FOR ADMISSION: Patient presented to emergency room with suicidal ideation and plan, worsening depression and ambivalent about alcohol treatment. He requires inpatient psychiatric admission in order to provide treatment and stabilization as he is a danger to himself. CHIEF COMPLAINT: "I was not feeling right that is why I came to the hospital HISTORY OF THE PRESENT ILLNESS: Patient is a 37 y/o male, single, was living in a homeless [facility], currently unemployed, with history of Bipolar Depression and Suicidal attempts. Patient was admitted to inpatient unit for worsening of depression and recurrence of suicidal thoughts following psychosocial stressors and as per patient he was clean for 2 and half years until it felt apart at the beginning of this year following break up with his girlfriend. As per patient, he has been compliant with his medications from outpatient provider in [place]. But patient and family were concerned about his alcoholism and patient went to start alcohol Rehab at [place] but was not ready for it and left that place. Patient has been losing interest in his life. Patient has been feeling passively suicidal, impulsive with his behavior but no suicidal intent or attempt. Patient reportedly has anxiety and depression somewhat responding to Effexor. Patient reports no manic symptoms at this time but has mentioned history of them regardless of substance /alcohol use. Patient reports no psychotic symptoms of hallucinations or delusions and requested to revisit his need to be on any antipsychotics. Patient denied any suicidal or homicidal ideation on the unit. Patient continued to exhibit behavior that was in control and will approach staff if suicidal thoughts recur. PAST PSYCHIATRIC HISTORY: Patient has history of multiple inpatient psychiatric hospitalization. Patient has history of outpatient psychiatric treatment for Bipolar Depression and alcohol use disorder. Patients have been tried on multiple medications including lithium, Zyprexa, Risperidone but was unable to comment on the response. Patient has history of multiple inpatient rehab and outpatient drug treatment and was reported sober for 2 and half years until relapsed in the beginning of the year following breakup. Patient has history of suicidal thoughts and attempts twice reported following inability to deal with psychosocial stressor and overdosed on medications which was impulsive and of moderate lethality and rescue probability. Patient has no history of homicidal threats, intent or attempt. Patient has history of aggressive and agitated behavior when decompensates but no reported history of violence. No access to firearm reported. SUBSTANCE ABUSE HISTORY: Patient uses alcohol and recently signed out from a rehab. Urine toxicology was negative. Last use of alcohol was 12/06/17. Patient has been in inpatient and outpatient treatment for drugs. PAST MEDICAL HISTORY: No active medical problems ALLERGIES: [facility] FAMILY PSYCHIATRIC HISTORY: Patient has family history of mental illness including depression and anxiety. Patient has history of substance abuse in family. No reported suicide in the family. FAMILY/PSYCHOSOCIAL HISTORY: Patient currently is homeless was living at a alcohol recovery housing but had to leave that at the beginning of this year because of his relapse. Patient is not . Patient has 4 siblings, was raised by mother, parents got when he was a child. Patient is currently close to his elder brother and is planning to move back to him once he is better. Patient support system includes his family and friends. REVIEW OF SYSTEMS: Patients review of symptoms was negative for any physical complaint. But patient has been agitated and unstable in his mood, refusing his vitals to be taken. Patients ED physical exam was reviewed which is grossly normal with no active medical problem. MENTAL STATUS EXAMINATION on Admission: Appearance: appear stated, age, fair hygiene, fairly kempt Behavior: cooperative Gait: normal Abnormal motor activity: none Speech: low tone and volume, normal rate and rhythm Mood: depressed Affect: dysphoric Thought process: goal directed Thought Content: Suicidal/Homicidal ideation: passive Delusions: none Obsessions: none Phobia: none Perceptual disturbance: none Attention: fair Orientation: intact Concentration: limited Memory: fair Insight: fair Judgment: fair Impulse control: fair Objective - Appearance Appearance: Healthy Appearing Dysmorphic Features: No Hygiene: Normal Grooming: Well Kept - Behavior Psychomotor Activities: Normal Exhibits Abnormal Movement: No - Attitude and Relatedness Attitude and Relatedness: Cooperative Eye Contact: Good - Speech Quality: Unpressured Latencies: Normal Quantity: Appropriate - Mood Patient's Decription of Mood: "Good" - Affect Observed Affect: Good - Thought Process Patient's Thought Process: Coherent Thought Content: No Passive Wish, No Suicidal Planning, No Homicidal Ideation, No Paranoid Ideation - Sensorium Experiencing Hallucinations: No, Sensorium is Clear Type of Hallucinations: Visual: No, Auditory: No, Command: No - Level of Consciousness Level of Consciousness: Alert Orientation: No Intact, No Orientated to Time, No Orientated to Place, No Orientated to Person - Impulse Control Impulse Control: Intact - Insight and Judgement Insight and Judgement: Good - Group Participation Particating in Group Activities: Yes - Medication Management Medication Management Adherence: Yes Treatment Course & Assessment Clinical Course & Impression: Patient with history of bipolar disorder, currently admitted for worsening depression and suicidal ideation with alcohol use disorder. Patient has also been struggling with relationship and stressed out about recent breakup. Patient was ambivalent about his alcohol treatment and recently left inpatient alcohol rehab. Patient was a danger to self, discharged hence medications were adjusted and symptoms were stabilized on inpatient. Patient was Admitted to [facility] on Q 15 min observation. Patient was encouraged to Integrate into the milieu and participate in therapy. After informed consent and patients interview and education Risperidone was reduced to 1 mg BID with intent to monitor any relapse in manic or psychotic symptoms. Patient was already reporting some improvement with Effexor XR 150mg QAM and remeron 15 mg HS for his anxiety and depression and wants to continue with that. Patient was started on Hydroxyzine as needed for breakthrough anxiety. Patient Patient was compliant with his medications and therapy, no reported side effects. Patient reported improvement in his symptoms of depression and anxiety. Patient sleeping was better. Patient eating improved. Patient was cooperative with staff. Patient behavior was in control with no behavior displayed that is dangerous to self and others. Patient was offered inpatient rehab upon further stability but wanted to follow up outpatient treatment for mental health and alcohol when discharged. Patient reported being committed about not relapsing on alcohol and stated that he has done that in the past. Patient was reporting no suicidal or homicidal ideation. No psychotic symptoms of delusions or hallucinations or relapse in manic symptoms. Patient participated in therapy and learned about relationships and coping strategies that was helpful to him. Patient reportedly made short term goals for himself upon discharge and found his family to be supportive. Patient also requested for Naltrexone to reduce craving for alcohol as he was aware of it in the past and has taken it with some benefits. As patient was doing better, not suicidal, not homicidal, was compliant with treatment. Patient was counseled on drug/alcohol treatment. Patient was discussed with team and discharge planning was discussed with patient , which he agreed to. Patient was not a danger to self and others, caring for self and hence was discharge to f/u outpatient mental health and drug treatment in [place]. Patient given prescription for his medications. Clear for Discharge: Adequate Clinical Respons Inpatient DSM-V Dx: F31.4 Discharge Planning - Discharge Planning Discharge Plan: Outpatient Follow Up Recommendations for Continuing Care: Medication Management Medications: Discharge Medications Mirtazapine (Remeron Tab*) 15 mg PO BEDTIME PRN PRN Reason: SLEEP Last Admin: 12/15/17 20:32 Dose: 15 mg Naltrexone HCl (Naltrexone Tab*) 50 mg PO DAILY [facility]; Protocol Last Admin: 12/16/17 08:20 Dose: 50 mg Risperidone (Risperdal*) 1 mg PO BID [facility] Last Admin: 12/16/17 08:20 Dose: 1 mg Venlafaxine HCl (Effexor Xr Cap*) 150 mg PO DAILY [facility] Last Admin: 12/16/17 08:20 Dose: 150 mg Discharge Planning: Prescriptions provided for discharge [x] Yes [] No Follow up care details as per social work arrangements. Patient response to discharge plan: [x] eager for discharge [] agreeable with discharge plan [] ambivalent about discharge [] disagrees with discharge today
== END 2017-12-16 11:40 | disposition home or self-care (01) | DRG 885 ==
LOC: ED 13:54 → BSU 12-12 14:21
PROVIDERS: ADMIT Psychiatry & Neurology Psychiatry; ATTEND Psychiatry & Neurology Psychiatry
DX: F31.4 Bipolar disorder, current episode depressed, severe, without psychotic features (principal); R45.851 Suicidal ideations; F10.10 Alcohol abuse, uncomplicated; Y90.0 Blood alcohol level of less than 20 mg/100 ml; F15.11 Other stimulant abuse, in remission; Z81.8 Family history of other mental and behavioral disorders; Z81.4 Family history of other substance abuse and dependence
CPT/HCPCS: 36415; 80053; 80061; 80307; 80320; 80329; 81003; 83036; 84443; 85025; 90853; 93005; 99222; 99285; A9270-GY; G0480